=== PATIENT | male | born 1995 | race Caucasian/White ===

== ENCOUNTER 2019-05-19 13:12 | Emergency (ER) | payer MEDICAID, OTHER ==
[~2019-05-19] VITALS: Ht 190.5 cm; Wt 131.5 kg
[2019-05-19 13:20] VITALS: BP 132/74
[2019-05-19 14:17] LABS: Basophils # (auto) 0.1 uL; Basophils % (auto) 0.5 % (0.0-2.0); Eosinophils # (auto) 0.1 uL; Lymphocytes # (auto) 2.1 uL; Lymphocytes % (auto) 21.4 % (10.0-50.0); Mean Corpuscular Hemoglobin 31.8 pg (28.0-32.0); Mean Corpuscular Hgb Conc. 34.8 g/dL (32.0-36.0); Mean Corpuscular Volume 91.4 fL (80.0-100.0); Monocytes # (auto) 0.7 uL; Monocytes % (auto) 7.6 % (0.0-12.0); Neutrophils # (auto) 6.8 uL; Neutrophils % (auto) 69.5 % (37.0-80.0); Nucleated Red Blood Cells % 0.1 %; Platelet Count (auto) 305 10^3/uL (140-450); Red Blood Cells 5.36 10^6/uL (4.5-5.90); Red Cell Distribution Width 13.1 % (11.8-14.3); White Blood Cell 9.8 10^3/uL (4.4-10.8)
[2019-05-19 14:29] LABS: Albumin 3.7 g/dL (3.4-5.0); Anion Gap 5 (5-15); Blood Urea Nitrogen 13 mg/dL (7-18); Calcium 8.6 mg/dL (8.5-10.1); Carbon Dioxide 28 mmol/L (21-32); Chloride 108 mmol/L (98-107); Glucose 86 mg/dL (74-106); Potassium 3.9 mmol/L (3.5-5.1); Sodium 141 mmol/L (136-145)
[2019-05-19 14:37] LABS: Alkaline Phosphatase 63 U/L (45-117); Bilirubin, Total 0.5 mg/dL (0.2-1.0); Total Protein 7.7 g/dL (6.4-8.2)
[2019-05-19 16:03] LABS: Alanine Aminotransferase 48 U/L (16-61); Aspartate Aminotransferase 10 U/L (15-37); BUN/Creatinine Ratio 13.4; GFR African American 122 mL/min; GFR Non-African American 101 mL/min
== END 2019-05-19 20:55 | disposition left against medical advice (07) ==
LOC: ER 13:12
DX: R06.02 Shortness of breath (principal); Z53.21 Procedure and treatment not carried out due to patient leaving prior to being seen by health care provider
CPT/HCPCS: 36415; 71046; 80053; 84484; 85025; 93005

== ENCOUNTER 2025-02-16 15:50 | Emergency (ER) | payer MEDICAID ==
[~2025-02-16] VITALS: Ht 188 cm; Wt 149.6 kg
[2025-02-16 16:05] VITALS: BP 149/91; RESP 20; TEMP 98.1; O2SAT 99
[2025-02-16 16:12] VITALS: PULSE 97
--- NOTE | 2025-02-16 16:17 | ECG ---
[facility] Test Date: 2025-02-16 Test Time: 16:12:00 Pat Name: GERARDO CORRALES Department: ER Room: Gender: Outside Dealer Sales Representative: ANALILIA : 1995 Requested By: PERRY KING Order Number: [id number] Reading MD: Liam Zazueta Measurements Intervals [place] Rate: 97 P: 62 NE: 157 QRS: 54 QRSD: 96 T: 28 QT: 356 QTc: 452 Interpretive Statements Sinus rhythm RSR' in V1 or V2, right VCD or RVH Electronically Signed On 02-18-2025 19:27:53 PDT by Liam Zazueta Please click the below link to view image of tracing.
[2025-02-16] MEDS ORDERED: SODIUM CHLORIDE 0.9% 1,000 ML IV ONE ×2 (17:45)
[2025-02-16 19:47] LABS: Urine Protein, UAD 1+ (Negative)
== END 2025-02-16 20:35 | disposition left against medical advice (07) ==
LOC: ER 15:50
DX: M79.18 Myalgia, other site (principal); R53.1 Weakness; Z53.21 Procedure and treatment not carried out due to patient leaving prior to being seen by health care provider
CPT/HCPCS: 81001; 82947; 82962; 93005